=== PATIENT | female | born 1985 | race American Indian/Alaskan Native ===

== ENCOUNTER 2016-02-11 11:04 | Emergency (ER) | payer SELFPAY ==
[2016-02-11 11:13] VITALS: BP 136/101
[2016-02-11] MEDS ORDERED: MOTRIN PO ONE (12:15)
--- NOTE | 2016-02-11 12:16 | Emergency Department Report ---
- General Chief Complaint: Upper Respiratory Infection Stated Complaint: COLD SYMPTOMS/N/V Time Seen by Provider: 02/11/16 11:54 Source: patient Mode of arrival: Ambulatory Limitations: No Limitations - History of Present Illness Initial Comments: 30-year-old female complains of cold-like symptoms for 1 week. She admits to sore throat cough with productive green sputum. Sneezing sweating fever chills. She was nauseated and vomited in the beginning of the week. She complains of nasal congestion runny eyes chest congestion. She has taken over- the-counter cold and cough medicine without much relief. She now is starting to have a sore throat. - Related Data Previous Rx's Medication Instructions Recorded Last Taken Type Cephalexin [Keflex] 500 mg PO BID #10 capsule 02/11/16 Unknown Rx Cetirizine HCl [ZyrTEC] 10 mg PO QDAY #30 capsule 02/11/16 Unknown Rx Fluticasone [Flonase] 1 spray NS QDAY #1 bottle 02/11/16 Unknown Rx Allergies Allergy/AdvReac Type Severity Reaction Status Date / Time No Known Allergies Allergy Verified 06/11/15 00:11 ED Review of Systems ROS: Stated complaint: COLD SYMPTOMS/N/V Other details as noted in HPI ED Past Medical Hx - Past Medical History Previous Medical History?: No - Surgical History Past Surgical History?: No - Social History Smoking Status: Never Smoker Substance Use Type: None - Medications Home Medications: Home Medications Medication Instructions Recorded Confirmed Last Taken Type Cephalexin [Keflex] 500 mg PO BID #10 capsule 02/11/16 Unknown Rx Cetirizine HCl [ZyrTEC] 10 mg PO QDAY #30 capsule 02/11/16 Unknown Rx Fluticasone [Flonase] 1 spray NS QDAY #1 bottle 02/11/16 Unknown Rx ED Physical Exam - General Limitations: No Limitations General appearance: alert, in no apparent distress - Head Head exam: Present: atraumatic, normocephalic - Eye Eye exam: Present: normal appearance - ENT ENT exam: Present: mucous membranes dry - Expanded ENT Exam Expanded TM/Canal exam: Erythema: Right TM, Left TM Throat exam: Positive: tonsillar erythema - Neck Neck exam: Present: full ROM. Absent: tenderness, lymphadenopathy - Respiratory Respiratory exam: Present: normal lung sounds bilaterally. Absent: respiratory distress, wheezes - Cardiovascular Cardiovascular Exam: Present: regular rate, normal rhythm ED Course Vital Signs 02/11/16 11:10 Temperature 98.2 F Blood Pressure 136/101 O2 Sat by Pulse 100 Oximetry ED Medical Decision Making - Medical Decision Making Since been evaluated by this provider in fast track. We will send out a strep test. We will give ibuprofen for pain. The most likely discharged patient on antibiotics Claritin Flonase. Will have patient follow up with the provider that we can refer her to. She verbalized understanding of the plan. Critical care attestation.: If time is entered above; I have spent that time in minutes in the direct care of this critically ill patient, excluding procedure time. ED Disposition Clinical Impression: Upper respiratory infection Qualifiers: URI type: acute nasopharyngitis (common cold) Qualified Code(s): J00 - Acute nasopharyngitis [common cold] Disposition: DISCHARGED TO HOME OR SELFCARE Is pt being admited?: No Does the pt Need Aspirin: No Condition: Stable Instructions: Upper Respiratory Infection (ED) Additional Instructions: Date all medications as prescribed follow with her primary care provider if he do not have one. Attention to the referral to a PCP. Your strep test was negative. Prescriptions: Fluticasone [Flonase] 1 spray NS QDAY #1 bottle Cephalexin [Keflex] 500 mg PO BID #10 capsule Cetirizine HCl [ZyrTEC] 10 mg PO QDAY #30 capsule Referrals: SHAY BIRMINGHAM MD [Primary Care Provider] - 3-5 Days JAVIER MATTHEW JR, MD [Staff Physician] - 3-5 Days Forms: Work/School Release Form(ED)
== END 2016-02-11 13:03 | disposition home or self-care (01) ==
LOC: ED 11:04
DX: J06.9 Acute upper respiratory infection, unspecified (principal); J00 Acute nasopharyngitis [common cold]
CPT/HCPCS: 87116; 87430; 99282

== ENCOUNTER 2016-06-23 23:19 | Emergency (ER) | payer OTHER ==
[2016-06-23 23:32] VITALS: BP 158/86
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
[2016-06-24] MEDS ORDERED: NORCO 5/325 PO ONE (05:26)
[2016-06-24] MEDS ORDERED: TORADOL IM ONE (05:26)
[2016-06-24] MEDS ORDERED: FLEXERIL PO ONE (05:26)
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
== END 2016-06-24 06:12 | disposition home or self-care (01) ==
LOC: ED 23:19
DX: R07.81 Pleurodynia (principal); V49.40XA Driver injured in collision with unspecified motor vehicles in traffic accident, initial encounter; Y93.89 Activity, other specified; Y99.8 Other external cause status; Y92.488 Other paved roadways as the place of occurrence of the external cause
CPT/HCPCS: 71100; 73110; 81025; 93005; 93010; 96372; 99284; J1885

== ENCOUNTER 2021-06-25 08:41 | Emergency (ER) | payer SELFPAY ==
[2021-06-25 08:54] VITALS: BP 142/91
[2021-06-25] MEDS ORDERED: predniSONE 20 MG TAB PO ONE (12:09)
[2021-06-25] MEDS ORDERED: KETOROLAC 60 MG/2 ML INJ IM ONE (12:09)
[2021-06-25] MEDS ORDERED: CYCLOBENZAPRINE 10 MG TAB PO ONE (12:09)
--- NOTE | 2021-06-25 13:48 | Emergency Department Report ---
ED Neck Pain/Injury HPI - General Chief Complaint: Neck Pain/Injury Stated Complaint: LUMP THROAT/SWOLLEN THROAT Time Seen by Provider: 06/25/21 11:58 Mode of arrival: Ambulatory Limitations: No Limitations - History of Present Illness Initial Comments: This is a 35-year-old female nontoxic, well nourished in appearance, no acute signs of distress presents to the ED with c/o of upper back pain x several days. Patient stated that the past 2 days she was moving and developed this pain. Patient denies any radiation of pain. Patient denies any injuries or trauma. Denies any bladder or bowel instability. Patient denies any urinary symptoms. Denies any fever, chills, nausea, vomiting, headache, stiff neck, chest pain or shortness of breath. Patient that his symptoms worsen with movement of neck and improved with rest. Patient denies any numbness or tingling. Denies any allergies. Denies significant past medical history. MD Complaint: upper back pain -: days(s) Place: home Severity: mild Severity scale (0 -10): 3 Quality: aching Consistency: intermittent Improves With: immobilization Worsens With: movement of neck Context: lifting Associated Symptoms: none. denies: headache, fever, numbness, tingling, weakness, vertigo, difficulty walking, swollen glands, difficulty swallowing, na usea, vomiting Treatments Prior to Arrival: none - Related Data Previous Rx's Medication Instructions Recorded Last Taken Type Ibuprofen [Motrin 800 MG tab] 800 mg PO Q8HR PRN #30 tablet 04/16/16 Unknown Rx Ketorolac [Toradol] 10 mg PO Q6H PRN #20 tablet 06/24/16 Unknown Rx methOCARBAMOL [Robaxin TAB] 500 mg PO BID #20 tab 06/24/16 Unknown Rx Cyclobenzaprine [Flexeril] 10 mg PO QHS PRN #10 tab 06/25/21 Unknown Rx Naproxen 500 mg PO Q12H PRN #12 tab 06/25/21 Unknown Rx Allergies Allergy/AdvReac Type Severity Reaction Status Date / Time No Known Allergies Allergy Verified 04/15/16 17:50 ED Review of Systems ROS: Stated complaint: LUMP THROAT/SWOLLEN THROAT Other details as noted in HPI Comment: All other systems reviewed and negative Constitutional: denies: chills, fever Eyes: denies: eye pain, eye discharge, vision change ENT: denies: ear pain, throat pain Respiratory: denies: cough, shortness of breath, wheezing Cardiovascular: denies: chest pain, palpitations Endocrine: no symptoms reported Gastrointestinal: denies: abdominal pain, nausea, diarrhea Genitourinary: denies: urgency, dysuria, discharge Musculoskeletal: denies: back pain, joint swelling, arthralgia Skin: denies: rash, lesions Neurological: denies: headache, weakness, paresthesias Psychiatric: denies: anxiety, depression Hematological/Lymphatic: denies: easy bleeding, easy bruising ED Past Medical Hx - Past Medical History Previous Medical History?: No - Surgical History Past Surgical History?: No - Social History Smoking Status: Never Smoker Substance Use Type: Alcohol - Medications Home Medications: Home Medications Medication Instructions Recorded Confirmed Last Taken Type Ibuprofen [Motrin 800 MG tab] 800 mg PO Q8HR PRN #30 tablet 04/16/16 Unknown Rx Ketorolac [Toradol] 10 mg PO Q6H PRN #20 tablet 06/24/16 Unknown Rx methOCARBAMOL [Robaxin TAB] 500 mg PO BID #20 tab 06/24/16 Unknown Rx Cyclobenzaprine [Flexeril] 10 mg PO QHS PRN #10 tab 06/25/21 Unknown Rx Naproxen 500 mg PO Q12H PRN #12 tab 06/25/21 Unknown Rx ED Physical Exam - General Limitations: No Limitations General appearance: alert, in no apparent distress - Head Head exam: Present: atraumatic, normocephalic - Eye Eye exam: Present: normal appearance - ENT ENT exam: Present: normal exam, normal orophraynx, TM's normal bilaterally, normal external ear exam - Neck Neck exam: Present: normal inspection, full ROM. Absent: tenderness, mening ismus, lymphadenopathy - Respiratory Respiratory exam: Absent: respiratory distress - Cardiovascular Cardiovascular Exam: Present: regular rate - Extremities Exam Extremities exam: Present: full ROM - Back Exam Back exam: Present: normal inspection, full ROM, paraspinal tenderness (Cervical paraspinal). Absent: tenderness, CVA tenderness (R), CVA tenderness (L), muscle spasm, vertebral tenderness, rash noted - Neurological Exam Neurological exam: Present: alert, oriented X3, normal gait - Psychiatric Psychiatric exam: Present: normal affect, normal mood - Skin Skin exam: Present: warm, dry, intact, normal color. Absent: rash ED Course Vital Signs 06/25/21 08:50 Temperature 98.1 F Pulse Rate 77 Respiratory 16 Rate Blood Pressure 142/91 [Left] O2 Sat by Pulse 99 Oximetry - Reevaluation(s) Reevaluation #1: 06/25/21 13:45 Patient is speaking in full sentences with no signs of distress noted. ED Medical Decision Making - Medical Decision Making This is a 35-year-old female that presents with cervical muscle strain. Patient is stable was examined by me. There is no spinal tenderness. There is no cauda equina syndrome during examination. No bladder or bowel instability. Patient received Toradol 60 mg IM, Flexeril and prednisone in the ED which stating that her symptoms has resolved and subsided. Patient is discharged with muscle relaxant and naproxen. Patient was instructed not to operate any machinery while taking muscle relaxant as they cause her drowsiness. Patient was referred to Follow-up with a primary care doctor in 3-5 days or if symptoms worsen and continue return to emergency room as soon as possible. At time of discharge, the patient does not seem toxic or ill in appearance. No acute signs of distress noted. Patient agrees to discharge treatment plan of care. No further questions noted by the patient. This chart is dictated with using [employer] Critical care attestation.: If time is entered above; I have spent that time in minutes in the direct care of this critically ill patient, excluding procedure time. ED Disposition Clinical Impression: Cervical muscle strain Disposition: 01 HOME / SELF CARE / HOMELESS Is pt being admited?: No Does the pt Need Aspirin: No Condition: Stable Instructions: Muscle Strain, [id number], Cyclobenzaprine tablets Additional Instructions: Follow-up with your primary care doctor in 3-5 days or if symptoms worsen such as bladder or bowel stability, chest pain, short of breath, numbness or tingling sensation in extremities, headache, dizziness, visual changes, nausea vomiting, or abdominal pain, return back to emergency room as was possible. Take naproxen and Flexeril as prescribed. Do not operate heavy machinery while taking Flexeril due to sedation Prescriptions: Cyclobenzaprine [Flexeril] 10 mg PO QHS PRN #10 tab PRN Reason: Muscle Spasm Naproxen 500 mg PO Q12H PRN #12 tab PRN Reason: Pain , Severe (7-10) Referrals: PRIMARY CAREMD [Primary Care Provider] - 3-5 Days KENNETH PURVIS MD [Staff Physician] - 3-5 Days Time of Disposition: 13:47
== END 2021-06-25 14:57 | disposition home or self-care (01) ==
LOC: ED 08:41
DX: S16.1XXA Strain of muscle, fascia and tendon at neck level, initial encounter (principal); X58.XXXA Exposure to other specified factors, initial encounter; Y93.89 Activity, other specified; Y92.89 Other specified places as the place of occurrence of the external cause; Y99.8 Other external cause status
CPT/HCPCS: 96372; 99282; J1885